=== PATIENT | male | born 1930 | race Caucasian/White ===

== ENCOUNTER → 2019-01-14 | Outpatient (CLI) | payer OTHER ==
[~2019-01-14] MED LIST: CEFDINIR300 MG PO; COUMADIN 2.5MG2.5 M1 PO; DIAZEPAM 2MG TAB2 MG PO; KEFLEX500 MG PO; LEXAPRO 10 MG T10 MG PO; LORATIDINE 10 M10 M1 PO; LOSARTAN POTAS100 MG PO; OXYCODONE HCL 55 MG PO; PRILOSEC 20 MG20 MG PO; PROSCAR 5MG TABL5 M1 PO; TOPROL XL25 MG PO; XANAX 0.5 MG0.5 M1 PO; ZOFRAN ODT4 MG PO
== END ==
LOC: M.MRI 15:53
DX: M47.26 Other spondylosis with radiculopathy, lumbar region (principal); M51.16 Intervertebral disc disorders with radiculopathy, lumbar region; M51.25 Other intervertebral disc displacement, thoracolumbar region; M12.88 Other specific arthropathies, not elsewhere classified, other specified site; M48.062 Spinal stenosis, lumbar region with neurogenic claudication; M40.46 Postural lordosis, lumbar region; M25.78 Osteophyte, vertebrae; M46.06 Spinal enthesopathy, lumbar region; M79.604 Pain in right leg

== ENCOUNTER → 2019-01-26 | Outpatient (CLI) | payer OTHER ==
[~2019-01-26] MED LIST changes: +FLEXERIL PO; +FLOMAX0.4 MG PO; +LEVSIN0.125 MG PO; +LEXAPRO 10 MG T10 M1 PO
== END ==
LOC: M.PC 05:30
DX: M51.36 Other intervertebral disc degeneration, lumbar region (principal); M48.061 Spinal stenosis, lumbar region without neurogenic claudication; M47.816 Spondylosis without myelopathy or radiculopathy, lumbar region; I10 Essential (primary) hypertension; Z85.841 Personal history of malignant neoplasm of brain; Z96.641 Presence of right artificial hip joint; Z87.891 Personal history of nicotine dependence; Z79.899 Other long term (current) drug therapy

== ENCOUNTER 2019-02-17 15:47 | Inpatient (IN) | payer OTHER ==
[~2019-02-17] VITALS: Ht 188 cm; Wt 103.0 kg
[2019-02-17 15:54] VITALS: BP 146/68
[2019-02-17 16:31] LABS: ABSOLUTE BASOPHILS 0.1 thou/uL (0.0-0.2); ABSOLUTE EOSINOPHILS 0.2 thou/uL (0.0-0.7); ABSOLUTE LYMPHOCYTES 0.9 thou/uL (0.8-5.3); ABSOLUTE MONOCYTES 0.6 thou/uL (0.0-1.2); ABSOLUTE NEUTROPHILS 4.2 thou/uL (1.6-8.1); BASOPHILS 1.1 %; EOSINOPHILS 2.7 %; HEMATOCRIT 37.5 % (42.0-52.0); HEMOGLOBIN 12.5 gm/dL (14.0-18.0); LYMPHOCYTES 15.2 %; MCH 31.8 pg (26.0-34.0); MCHC 33.5 g/dL (28.0-37.0); MONOCYTES 10.4 %; MPV 6.9 fl. (7.2-11.1); NUCLEATED RBCS 0 /100WBC; PLATELET COUNT* 248 thou/uL (150-400); POLYS 70.6 %; RBC 3.95 mil/uL (4.50-6.00); RDW-CV 14.7 % (10.5-14.5)
[2019-02-17 16:39] LABS: CALCIUM 8.6 mg/dL (8.5-10.1); CREATININE 1.2 mg/dL (0.6-1.3); POTASSIUM 4.3 mmol/L (3.5-5.1)
[2019-02-17 16:42] LABS: APTT 34.9 Seconds (25.0-31.3); INR 2.1; PROTIME 21.3 Seconds (9.20-11.50)
[2019-02-17 16:43] LABS: TOTAL BILIRUBIN 0.5 mg/dL (<0.1-1.0); TOTAL PROTEIN 5.9 g/dL (6.4-8.2)
[2019-02-17] MEDS ORDERED: PRILOSEC OTC20 MG PO (17:49)
[2019-02-17 19:30] LABS: URINE BILIRUBIN NEGATIVE (Negative); URINE BLOOD TRACE (Negative); URINE CLARITY CLEAR; URINE COLOR YELLOW; URINE GLUCOSE-RANDOM NEGATIVE (Negative); URINE KETONES NEGATIVE (Negative); URINE LEUKOCYTES-REFLEX NEGATIVE (Negative); URINE NITRITE-REFLEX NEGATIVE (Negative); URINE PROTEIN NEGATIVE (Negative); URINE UROBILINOGEN 0.2 E.U./dl (0.2-1.0)
[2019-02-17 19:38] LABS: AMP/METHAMP Negative (Negative); BARBITURATES Negative (Negative); BENZODIAZEPINES Negative (Negative); COCAINE Negative (Negative); METHADONE Negative (Negative); OPIATES Negative (Negative); PCP Negative (Negative); THC Negative (Negative)
[2019-02-17 20:00] VITALS: BP 118/59
[2019-02-17 20:16] VITALS: BP 163/82
[2019-02-17 22:39] LABS: URINE POTASSIUM-RANDOM 7.2 mmol/L
[2019-02-18 00:40] VITALS: BP 176/84
[2019-02-18 04:00] VITALS: BP 149/86
[2019-02-18 04:18] LABS: ABSOLUTE EOSINOPHILS 0.2 thou/uL (0.0-0.7); ABSOLUTE LYMPHOCYTES 0.7 thou/uL (0.8-5.3); ABSOLUTE MONOCYTES 0.5 thou/uL (0.0-1.2); BASOPHILS 0.9 %; EOSINOPHILS 2.8 %; HEMATOCRIT 38.2 % (42.0-52.0); HEMOGLOBIN 12.8 gm/dL (14.0-18.0); LYMPHOCYTES 12.5 %; MCH 32.1 pg (26.0-34.0); MCHC 33.4 g/dL (28.0-37.0); MONOCYTES 8.4 %; NUCLEATED RBCS 0 /100WBC; PLATELET COUNT* 239 thou/uL (150-400); POLYS 75.4 %; RBC 3.98 mil/uL (4.50-6.00); RDW-CV 14.3 % (10.5-14.5); WBC 5.3 thou/uL (4.0-11.0)
[2019-02-18 04:26] LABS: APTT 33.8 Seconds (25.0-31.3); INR 1.9; PROTIME 19.1 Seconds (9.20-11.50)
[2019-02-18 04:47] LABS: ALBUMIN 2.9 g/dL (3.4-5.0); CALCIUM 8.4 mg/dL (8.5-10.1); CREATININE 0.9 mg/dL (0.6-1.3); TOTAL BILIRUBIN 0.6 mg/dL (<0.1-1.0); TOTAL PROTEIN 5.7 g/dL (6.4-8.2)
--- NOTE | 2019-02-18 05:39 | NUR ---
RECEIVED PT FROM ED [ER CATRT AT APPROX 1999, ACCOMPANIED BY CHEYANNE KELLEY. PT IS AWAKE AND ORIENTED X4. VSS ON ROOM AIR. TANNERY GUMMER IS TRACING AFIB-RATE CONTROLLED. PT ADVISED ON DIET AND ON FLUID RESTRICTION. ADMISSION ASSESSMENT DONE AND CHARTED. PT DENIES PAIN. WOUND RN CONSULTED FOR RT UPPER EXTREMETY HEMATOMA. ADVISED ON THE USE OF CALL LIGHT. ORIENTED TO ROOM SET UP. HIGH FALL PRECAUTIONS IN PLACE. WCTM.
[2019-02-18 09:30] VITALS: BP 152/82
--- NOTE | 2019-02-18 09:56 | EKG ---
[place] [address] ELECTROCARDIOGRAM REPORT Name: HEATHER THAO Room: [address] ADM IN .R.#: [id number] Admission: 02/17/19 Attend Phys: Justina Dumont MD Discharge: Date of : 34 Report #: [id number] THIS REPORT FOR: //name// [facility] ED Test Date: 2019-02-17 Test Time: 17:07:53 Pat Name: HEATHER THAO Department: Room: [facility] Gender: M Configuration Management Analyst: : 1930 Requested By: Francine White Order Number: [id number] MD: Gabe Carrillo Measurements Intervals [place] Rate: 88 P: DC: QRS: 12 QRSD: 88 T: 12 QT: 368 QTc: 446 Interpretive Statements Atrial fibrillation Ventricular premature complex Abnormal R-wave progression, early transition Baseline wander in lead(s) V5 Compared to ECG 02/01/2016 06:21:08 No significant changes Electronically Signed On 02-18-2019 9:56:14 CDT by Gabe Carrillo [email or web address] <ELECTRONICALLY SIGNED> By: Gabe Carrillo MD, [facility] 02/18/19 0956 [id number] 1707 Gabe Carrillo MD, [facility] /EPI
[2019-02-18 11:50] VITALS: BP 153/86
[2019-02-18 12:00] VITALS: BP 153/86
--- NOTE | 2019-02-18 12:04 | NUR ---
Pt is A&O. Resides at home with , is out of town, dtr in room. Pt is normally independent. Uses a cane for mobility. No hx of HH or SNF. Anticipate dc to home today. CM checking with [facility] to see if they can accept Pt for HH services, will fax orders once confirmed. Following.
[2019-02-18] MEDS ORDERED: ASPIR 8181 M1 PO (15:36)
[2019-02-18 16:00] VITALS: BP 173/92
--- NOTE | 2019-02-18 17:21 | NUR ---
ASSUSSMED CARE OF PT APPROX 0730. PT ASSESSMENT COMPLETED CHARTED. MEDICATIONS GIVEN CHARTED. HOURLY ROUNDING COMPLETED. PT FAMILY AT BEDSIDE. DISCHARGE TEACHING WITH PT AND PTS DAUGHTERS. PT VERBALIZED UNDERSTANDING. PT FAMILY WILL BE INVOLVED WITH CARE POST DISCHARGE. PT ESCORTED IN WHEELCHAIR TO VEHICLE BY STAFF APRROX 1700.
--- NOTE | 2019-02-18 19:28 | NUR ---
I HAVE REVIEWED AND AGREE WITH THE ASSESMENT AND NOTE OF JOSE L Oleary RN 02/18/19
== END 2019-02-18 17:00 | disposition home or self-care (01) | DRG 604 ==
LOC: M.ERS 15:47 → M.2W 17:29 → M.TBA-ER 17:29 → M.2W 19:41
PROVIDERS: Physician Assistant; ADMIT Internal Medicine
DX: S40.021A Contusion of right upper arm, initial encounter (principal); G93.41 Metabolic encephalopathy; E87.1 Hypo-osmolality and hyponatremia; I10 Essential (primary) hypertension; Z96.641 Presence of right artificial hip joint; Z87.891 Personal history of nicotine dependence; I48.2 Chronic atrial fibrillation; Z79.899 Other long term (current) drug therapy; F03.90 Unspecified dementia, unspecified severity, without behavioral disturbance, psychotic disturbance, mood disturbance, and anxiety; X58.XXXA Exposure to other specified factors, initial encounter; Y93.89 Activity, other specified; Y92.89 Other specified places as the place of occurrence of the external cause; Y99.8 Other external cause status

== ENCOUNTER 2021-04-12 16:46 | Emergency (ER) | payer OTHER ==
[~2021-04-12] VITALS: Ht 188 cm; Wt 100.2 kg
--- NOTE | ~2021-04-12 | EMS ---
[facility] [address] [place] [address] EMS Patient Care Report Name: HEATHER THAO Room: [facility]#: [id number] Admission: 04/12/21 Attend Phys: Discharge: Date of : 34 Report #: [id number] THIS REPORT FOR: //name// Report Transmitted: 04/12/2021 16:36 EMS Care Summary [facility] Incident [id number] @ 04/12/2021 15:45 Incident Location [address] [place] [address] Patient HEATHER THAO Female, 89 Years 1930 Patient Address [address] [place] [address] Patient History Dementia,Hypertension (HTN),Gastro-Esophageal Reflux Disease (GERD), Patient Allergies No known allergies, Patient Medications Memantine, Omeprazole, ASA, Metoprolol, Chief Complaint R Upper Arm Pain Disposition Transported No Lights/[place] [facility] Reason No Other Appropriate Choice Transported To [facility] Narrative 89 y/o male pt found laying supine in bed at home upon EMS arrival. Pt was alert and able to answer questions appropriately. Pt complains of R upper arm pain as well as swelling into the R hand. Family states that his arm has been bothering him for the past couple of weeks, but resolved for a few days and [address] [id number] [place] Patient Care Report Name: HEATHER THAO Room: [facility]#: [id number] Admission: 04/12/21 Attend Phys: Discharge: Date of : 34 Report #: [id number] is back. There is no known trauma to that arm. Family also denies a history of gout. Pt has a history of dementia and some memory issues as well. Pt denies any other pain or difficulty breathing. Family on scene advises that the patient can become rather agitated easily. He was moved to a stairchair out to the ambulance. Pt was able to transfer to the cot with assistance, but favored the right arm. Pulse, motor and sensation is in tact in that extremity. Once in ambulance, initial vitals were assessed. Pt remained calm and cooperative throughout transport. He was continuously monitored and reassessed with no further complaints. Care was transferred to RN at [facility]. Initial Vitals @16:21P: 99,R: 18,BP: 115/69,GCS: 15,SpO2: 95,Revised Trauma: 12, @16:35P: 102,R: 16,BP: 118/71,Pain: 4/10,GCS: 15,SpO2: 96,Revised Trauma: 12, Impression Extremity Pain Timeline 15:45,Call Received 15:45,Dispatched 15:49,En Route 15:57,Initial Responder On Scene 15:57,On Scene 15:59,At Patient 16:18,Depart Scene 16:21,BP: 115/69 M,PULSE: 99,RR: 18 R,SPO2: 95 Ox,ETCO2: ,BG: ,PAIN: ,GCS: 15, 16:35,BP: 118/71 M,PULSE: 102,RR: 16 R,SPO2: 96 Ox,ETCO2: ,BG: ,PAIN: 4,GCS: 15, 16:40,At Destination 16:42,Transfer Patient 17:09,Call Closed 17:09,In District Disclaimer v1.1 Copyright 2020 [employer] This EMS Care Summary contains data elements from the applicable legal record (which may be displayed differently). It is designed to provide pertinent information for the following purposes: continuity of care, clinical quality, and state data reporting. The complete legal record is available to ED staff and administrators of the receiving hospital in [employer]'s Patient Tracker. All data is provided "as is."
[~2021-04-12 16:46] MED LIST changes: +ASPIR 8181 M1 PO; +PRILOSEC OTC20 MG PO
[2021-04-12 16:59] LABS: ABSOLUTE BASOPHILS 0.1 thou/uL (0.0-0.2); ABSOLUTE EOSINOPHILS 0.1 thou/uL (0.0-0.7); ABSOLUTE LYMPHOCYTES 0.8 thou/uL (0.8-5.3); ABSOLUTE MONOCYTES 0.7 thou/uL (0.0-1.2); ABSOLUTE NEUTROPHILS 5.8 thou/uL (1.6-8.1); BASOPHILS 0.7 %; EOSINOPHILS 1.1 %; HEMATOCRIT 41.1 % (42.0-52.0); HEMOGLOBIN 13.7 gm/dL (14.0-18.0); LYMPHOCYTES 10.7 %; MCH 30.6 pg (26.0-34.0); MCHC 33.3 g/dL (28.0-37.0); MCV 91.9 fL (80.0-100.0); MONOCYTES 9.5 %; MPV 7.4 fl. (7.2-11.1); NUCLEATED RBCS 0 /100WBC; PLATELET COUNT* 308 thou/uL (150-400); RBC 4.47 mil/uL (4.50-6.00); WBC 7.5 thou/uL (4.0-11.0)
[2021-04-12 17:07] LABS: CALCIUM 8.4 mg/dL (8.5-10.1); CREATININE 1.3 mg/dL (0.6-1.3); POTASSIUM 4.2 mmol/L (3.5-5.1)
[2021-04-12 17:11] LABS: ALBUMIN 2.6 g/dL (3.4-5.0); TOTAL BILIRUBIN 0.6 mg/dL (<0.1-1.0); TOTAL PROTEIN 6.6 g/dL (6.4-8.2); URIC ACID* 5.2 mg/dL (2.6-7.2)
[2021-04-12] MEDS ORDERED: PREDNISONE 20 M20 M1 PO (18:08)
[2021-04-12 18:15] VITALS: BP 133/74
== END 2021-04-12 18:38 | disposition home or self-care (01) ==
LOC: M.ERS 16:46
PROVIDERS: Family Medicine
DX: R22.31 Localized swelling, mass and lump, right upper limb (principal); M10.9 Gout, unspecified